=== PATIENT | male | born 1950 ===

== ENCOUNTER 2020-07-09 06:56 | Day surgery (SDC) | payer MEDICARE, OTHER ==
[~2020-07-09] VITALS: Ht 182.9 cm; Wt 118.0 kg
[2020-07-09] MEDS ORDERED: TAMSULOSIN PO (07:40)
[2020-07-09 07:46] VITALS: BP 127/77
[2020-07-09] MEDS ORDERED: SODIUM CHLORIDE 0.9% 1,000 ML IV SCH (08:00)
[2020-07-09] MEDS ORDERED: LIDOCAINE 1%, 20ML ONE (08:35)
[2020-07-09] MEDS ORDERED: FENTANYL PF 100 MCG/2ML ONE (08:51)
[2020-07-09] MEDS ORDERED: MIDAZOLAM 1 MG/ML, 5ML ONE (08:52)
[2020-07-09] MEDS ORDERED: NALOXONE 1 MG/ML, 2ML ONE (08:52)
[2020-07-09] MEDS ORDERED: FLUMAZENIL 0.1 MG/1 ML, 5ML ONE (08:52)
== END 2020-07-09 11:45 | disposition home or self-care (01) ==
LOC: OUT 06:56
PROVIDERS: ATTEND Urology
DX: N35.912 Unspecified bulbous urethral stricture, male (principal); N39.490 Overflow incontinence; N52.9 Male erectile dysfunction, unspecified; I10 Essential (primary) hypertension; E66.9 Obesity, unspecified; F17.210 Nicotine dependence, cigarettes, uncomplicated; Z68.36 Body mass index [BMI] 36.0-36.9, adult; Z79.899 Other long term (current) drug therapy; Z87.440 Personal history of urinary (tract) infections; Z88.0 Allergy status to penicillin; Z91.012 Allergy to eggs
CPT/HCPCS: 51102; 76942; 77002; 99156; 99157; C1725; C1769; J2250; J3010; J7030; 75989; J2310

== ENCOUNTER 2020-10-21 05:49 | Day surgery (SDC) | payer MEDICARE ==
[2020-10-20 12:48] LABS: BASOPHILS % (AUTO) 1 % (0-1); EOSINOPHILS % (AUTO) 6 % (1-7); LYMPHOCYTES % (AUTO) 28 % (22-44); MEAN CORPUSCULAR HEMOGLOBIN 31.2 pg (27.5-34.5); MEAN CORPUSCULAR HGB CONC 33.8 g/dL (33.2-36.2); MEAN PLATELET VOLUME 7.3 fL (7.4-10.4); MONOCYTES % (AUTO) 5 % (2-9); NEUTROPHILS % (AUTO) 60 % (42-75); PLATELET COUNT 431 x10^3/uL (130-400); RED BLOOD COUNT 5.43 x10^6/uL (4.38-5.82); RED CELL DISTRIBUTION WIDTH 14.6 % (9.4-14.8)
[2020-10-20 13:00] LABS: ANION GAP 6 mmol/L (5-15); CALCIUM 9.4 mg/dL (8.5-10.1); CHLORIDE 109 mmol/L (98-107); CREATININE 1.73 mg/dL (0.7-1.3)
[~2020-10-21] VITALS: Ht 182.9 cm; Wt 116.1 kg
[~2020-10-21 05:49] MED LIST: SULF-23 PO; TAMSULOSIN PO
[2020-10-21 06:36] VITALS: BP 117/81
[2020-10-21] MEDS ORDERED: LACTATED RINGERS 1,000 ML IV SCH (07:00)
[2020-10-21] MEDS ORDERED: LIDOCAINE-MPF 1%, 2ML INFIL ONE (07:00)
[2020-10-21] MEDS ORDERED: CHLORHEXIDINE 15 ML UDC PO ONE (07:00)
[2020-10-21] MEDS ORDERED: CEFTRIAXONE 1,000 MG ONE (07:05)
[2020-10-21] MEDS ORDERED: BUPIVACAINE 0.25% ONE (07:07)
[2020-10-21] MEDS ORDERED: METHYLENE BLUE 50 MG/10 ML AMP ONE (07:07)
[2020-10-21] MEDS ORDERED: BACITRACIN/POLYMIXIN B SULFATE OINT 14 GM ONE (07:07)
[2020-10-21] MEDS ORDERED: LIDOCAINE/PF 1%, 30ML ONE (07:07)
[2020-10-21] MEDS ORDERED: LIDOCAINE-MPF 2% ,5ML ONE (07:09)
[2020-10-21] MEDS ORDERED: MIDAZOLAM 1 MG/ML, 2ML ONE (07:09)
[2020-10-21] MEDS ORDERED: FENTANYL PF 250 MCG/5ML ONE (07:10)
[2020-10-21] MEDS ORDERED: GENTAMICIN 80 MG/2 ML ONE (07:30)
[2020-10-21] MEDS ORDERED: SUCCINYLCHOLINE 20 MG/ML, 10ML ONE (07:55)
[2020-10-21] MEDS ORDERED: ONDANSETRON 2MG/ML, 2ML ONE (07:55)
[2020-10-21] MEDS ORDERED: PROPOFOL 10 MG/ML, 20ML ONE (07:55)
[2020-10-21] MEDS ORDERED: DEXAMETHASONE 4 MG/ML, 1ML ONE (07:55)
[2020-10-21] MEDS ORDERED: KETOROLAC 30 MG/1 ML ONE (07:56)
[2020-10-21] MEDS ORDERED: ONDANSETRON 2MG/ML, 2ML IVPush PRN (08:00)
[2020-10-21] MEDS ORDERED: FENTANYL PF 100 MCG/2ML IV PRN (08:00)
[2020-10-21] MEDS ORDERED: HYDROmorphone 1 MG/ML, 1ML INJ IVPush PRN (08:00)
[2020-10-21] MEDS ORDERED: EPHEDRINE 50 MG/ML, 1ML IVPush PRN (08:00)
[2020-10-21] MEDS ORDERED: OXYcodone 5 MG/5 ML ORAL.SOL UDC PO PRN (08:00)
[2020-10-21] MEDS ORDERED: LABETALOL 5MG/ML, 20ML IV PRN (08:00)
[2020-10-21] MEDS ORDERED: ACETAMINOPHEN 325 MG TABLET PO PRN (08:00)
[2020-10-21] MEDS ORDERED: hydrALAzine 20 MG/ML, 1ML IV PRN (08:00)
[2020-10-21] MEDS ORDERED: PROMETHAZINE 25 MG/ML, 1ML IVPush PRN (08:00)
[2020-10-21] MEDS ORDERED: EPHEDRINE 50 MG/ML, 1ML ONE (08:53)
[2020-10-21] MEDS ORDERED: HYDROmorphone 1 MG/ML, 1ML INJ ONE (10:37)
== END 2020-10-21 16:20 | disposition home or self-care (01) ==
LOC: OUT 05:49
PROVIDERS: ATTEND Urology
DX: N35.912 Unspecified bulbous urethral stricture, male (principal); N35.913 Unspecified membranous urethral stricture, male; N52.9 Male erectile dysfunction, unspecified; N39.490 Overflow incontinence; Z79.899 Other long term (current) drug therapy; Z87.440 Personal history of urinary (tract) infections; Z87.891 Personal history of nicotine dependence; Z88.0 Allergy status to penicillin; Z91.012 Allergy to eggs
CPT/HCPCS: 14041; 36415; 51705; 53400; 80048; 85025; 87086; 93005; C1760; C1769; J0330; J0696; J1100; J1170; J1580; J1885; J2250; J2405; J2704; J3010; J7120; Q9968

== ENCOUNTER 2020-11-27 18:54 | Inpatient (IN) | payer MEDICARE ==
[~2020-11-27] VITALS: Ht 182.9 cm; Wt 113.9 kg
[~2020-11-27 18:54] MED LIST changes: +METRONIDAZOLE PMX 500MG/100ML 100 ML IV ONE
--- NOTE | 2020-11-27 19:23 | NUR ---
PT A&OX4, NO ACUTE DISTRESS, SAYS HE'S HAD BLOOD COMING OUT IN HIS URINE. HERE TO BE SEEN.
[2020-11-27 19:34] LABS: MEAN CORPUSCULAR HEMOGLOBIN 30.9 pg (27.5-34.5); MEAN PLATELET VOLUME 7.2 fL (7.4-10.4); PLATELET COUNT 405 x10^3/uL (130-400); RED BLOOD COUNT 5.21 x10^6/uL (4.38-5.82); RED CELL DISTRIBUTION WIDTH 14.3 % (9.4-14.8)
[2020-11-27 19:40] LABS: ALBUMIN 2.7 g/dL (3.4-5.0); ANION GAP 12 mmol/L (5-15); CALCIUM 9.4 mg/dL (8.5-10.1); CHLORIDE 99 mmol/L (98-107); CREATININE 1.49 mg/dL (0.7-1.3)
[2020-11-27] MEDS ORDERED: SODIUM CHLORIDE 0.9% 1,000ML IVBOLUS ONE ×3 (20:00→23:00)
[2020-11-27 20:01] LABS: <PLATELET ESTIMATE> INCREASED; <RBC MORPHOLOGY> NORMAL; BAND#(MANUAL) 1.97 x10^3/uL; BANDS%(MANUAL) 8 % (0-7); BASOS#(MANUAL) 0.25 x10^3/uL (0-0.1); BASOS% (MANUAL) 1 % (0-1); LYMPH#(MANUAL) 3.94 x10^3/uL (1-3.4); LYMPHS% (MANUAL) 16 % (22-44); MONOS#(MANUAL) 0.98 x10^3/uL (0.3-2.7); MONOS% (MANUAL) 4 % (2-9); PMNS WITH VACUOLES 1+; SEG#(MANUAL) 17.47 x10^3/uL (1.8-6.8); SEGS% (MANUAL) 71 % (42-75); SMALL PLATELETS 1+
--- NOTE | 2020-11-27 20:29 | NUR ---
PA TO BEDSIDE TO EVAL PT. PIV STARTED TO LEFT AC X1 ATTEMPT 20G, AND PT TOLERATED WELL. CADD TECHNICIAN TO BEDSIDE AND BLOOD CULTURES X2 DRAWN, AND ALL OTHER LABS. PT TOLERATED WELL. PTS AT BEDSIDE.
--- NOTE | 2020-11-27 21:10 | NUR ---
BLADDER SCANNER SHOWS 532ML OF URINE IN THE PTS BLADDER.
[2020-11-27] MEDS ORDERED: ONDANSETRON 2MG/ML, 2ML ONE (21:29)
[2020-11-27] MEDS ORDERED: MORPHINE SULFATE 4 MG/ML, 1ML ONE (21:29)
[2020-11-27] MEDS ORDERED: ONDANSETRON 2MG/ML, 2ML IVPush ONE (21:30)
[2020-11-27] MEDS: MORPHINE SULFATE 4 MG/ML, 1ML IVPush PRN (21:30)
[2020-11-27] MEDS ORDERED: SODIUM CHLORIDE FLUSH 10ML SYR IVF ONE (21:30)
[2020-11-27] MEDS ORDERED: VANCOMYCIN PER PHARMACY MC ONE (21:30)
[2020-11-27] MEDS ORDERED: OMNIPAQUE 350 MG/ML, 150 ML BOTTLE ONE (21:52)
[2020-11-27] MEDS ORDERED: VANCOMYCIN 2,500 MG in SODIUM CHLORIDE 0.9% 500 ML IV ONE (22:00)
[2020-11-27] MEDS ORDERED: LEVOFLOXACIN/PMX 750MG/150ML 150 ML IV ONE (22:00)
[2020-11-27 22:36] LABS: MICROSCOPIC INDICATED
--- NOTE | 2020-11-27 22:44 | NUR ---
MD TO BEDSIDE WITH RN FOR PLACEMENT OF SUPRAPUBIC SANDY IN EXISTING SUPRAPUBIC HOLE. STERILE TECHNIQUE USED AND MD TO PLACE SANDY WITH RN ASSISTING. SANDY PLACED AND POSITIVE URINE OUTPUT, NOEMI AND CLOUDY CAME OUT. SOME BLOOD STAIN NOTED. CONNECTED TO SANDY BAG, AND SAMPLE SENT TO LAB FOR TESTS. PT RESTING COMFORTABLY. AND ANTIBIOTICS STARTED VIA IV TO LEFT AC.
--- NOTE | 2020-11-27 22:56 | NUR ---
NEW ORDERS, PT TO GO TO OR FOR EMERGENT SURGERY TO HELP WITH CURRENT INFECTION TO HIS GENITAL AREA. PT SWABBED FOR COVID, AND SAMPLE WALKED TO THE LAB. PT A&OX4, NO ACUTE DISTRESS, AND AT BEDSIDE. MD TO BEDSIDE TO EXPLAIN THE NEXT STEPS AND THAT UROLOGY IS COMING TO CONSULT ON PT. PT AND BOTH V/U.
[2020-11-27] MEDS ORDERED: VANCOMYCIN PER PHARMACY MC PRN (23:00)
[2020-11-27] MEDS ORDERED: BUPIVACAINE/PF 0.25% ONE (23:02)
[2020-11-27] MEDS ORDERED: BUPIVACAINE/PF 0.25% INFIL ONE (23:05)
--- NOTE | 2020-11-27 23:09 | NUR ---
PT TAKEN TO OR AT THIS TIME BY THE OR TECH. PER THEM, THIS IS AN EMERGENCY INVOLVING THE GENITAL AREA, SUCH HE IS BEING MOVED TO THE OR NOW FOR CARE. REPORT GIVEN TO [facility]AL[facility] SPECIALIST AND THEY V/U. PTS WENT WITH PT TO SIGN PAPERWORK.
[2020-11-27] MEDS ORDERED: VANCOMYCIN 1,000 MG ONE (23:23)
[2020-11-27] MEDS ORDERED: MIDAZOLAM 1 MG/ML, 2ML ONE (23:25)
[2020-11-27] MEDS ORDERED: FENTANYL PF 250 MCG/5ML ONE (23:25)
[2020-11-27] MEDS ORDERED: PHARMACY MAY ADJ FOR RENAL FX MC PRN (23:30)
[2020-11-27] MEDS ORDERED: MELATONIN 5 MG TABLET PO PRN (23:30)
[2020-11-27] MEDS ORDERED: ONDANSETRON 2MG/ML, 2ML IVPush PRN (23:30)
[2020-11-27] MEDS ORDERED: SODIUM CHLORIDE 0.9% 1,000 ML IV SCH (23:30)
[2020-11-27] MEDS ORDERED: BISACODYL 10 MG SUPP PR PRN (23:30)
[2020-11-28] MEDS ORDERED: MEPERIDINE/PF 25MG/0.5ML IVPush PRN (00:30)
[2020-11-28] MEDS ORDERED: PROMETHAZINE 25 MG/ML, 1ML IV PRN (00:30)
[2020-11-28] MEDS ORDERED: ALBUTEROL SULFATE 2.5 MG/3 ML NPPB PRN (00:30)
[2020-11-28] MEDS ORDERED: ONDANSETRON 2MG/ML, 2ML IVPush PRN (00:30)
[2020-11-28] MEDS ORDERED: KETOROLAC 30 MG/1 ML IV PRN (00:30)
[2020-11-28] MEDS ORDERED: OXYcodone 5 MG/5 ML ORAL.SOL UDC PO PRN (00:30)
[2020-11-28] MEDS ORDERED: hydrALAzine 20 MG/ML, 1ML IV PRN (00:30)
[2020-11-28] MEDS ORDERED: HYDROmorphone 1 MG/ML, 1ML INJ IV PRN (00:30)
[2020-11-28] MEDS ORDERED: DIAZEPAM 5 MG/ML, 2ML IV PRN ×2 (00:30)
[2020-11-28] MEDS ORDERED: LABETALOL 5MG/ML, 20ML IV PRN (00:30)
[2020-11-28] MEDS ORDERED: FENTANYL PF 100 MCG/2ML IV PRN (00:30)
[2020-11-28] MEDS: MORPHINE SULFATE 4 MG/ML, 1ML IVPush PRN (01:12)
[2020-11-28] MEDS ORDERED: NOREPINEPHRINE 8 MG in SODIUM CHLORIDE 0.9% 242 ML IV PRN (01:30)
[2020-11-28] MEDS: LEVOFLOXACIN/PMX 750MG/150ML 150 ML IV SCH (02:30)
[2020-11-28 06:01] LABS: BASOPHILS % (AUTO) 1 % (0-1); EOSINOPHILS % (AUTO) 1 % (1-7); LYMPHOCYTES % (AUTO) 16 % (22-44); MEAN CORPUSCULAR HEMOGLOBIN 30.7 pg (27.5-34.5); MEAN CORPUSCULAR HGB CONC 33.6 g/dL (33.2-36.2); MEAN PLATELET VOLUME 7.1 fL (7.4-10.4); MONOCYTES % (AUTO) 8 % (2-9); NEUTROPHILS % (AUTO) 75 % (42-75); PLATELET COUNT 370 x10^3/uL (130-400); RED BLOOD COUNT 4.33 x10^6/uL (4.38-5.82); RED CELL DISTRIBUTION WIDTH 14.2 % (9.4-14.8)
[2020-11-28 06:12] LABS: ANION GAP 8 mmol/L (5-15); CALCIUM 7.7 mg/dL (8.5-10.1); CHLORIDE 105 mmol/L (98-107)
[2020-11-28 06:15] LABS: CREATININE 0.96 mg/dL (0.7-1.3)
[2020-11-28] MEDS ORDERED: OXYcodone IR 5MG TABLET ONE (06:15)
[2020-11-28] MEDS: OXYcodone IR 5MG TABLET PO PRN (06:20)
[2020-11-28] MEDS ORDERED: POTASSIUM CHLORIDE 20 MEQ TAB.ER.PRT PO ONE (06:30)
[2020-11-28] MEDS: morphine SULFATE 10 MG/ML, 1ML IVPush PRN (10:26)
[2020-11-28] MEDS ORDERED: PHARMACOKINETIC MONITORING MC PRN (15:30)
[2020-11-28] MEDS ORDERED: POLYETHYLENE GLYCOL 17 GM PACKET NG PRN (21:30)
[2020-11-29] MEDS: LEVOFLOXACIN/PMX 750MG/150ML 150 ML IV SCH (01:00)
[2020-11-29] MEDS: morphine SULFATE 10 MG/ML, 1ML IVPush PRN ×2 (03:11→11:03)
[2020-11-29 09:21] LABS: ALANINE AMINOTRANSFERASE 21 U/L (12-78); ALBUMIN 1.9 g/dL (3.4-5.0); ANION GAP 5 mmol/L (5-15); CALCIUM 8.4 mg/dL (8.5-10.1); CHLORIDE 108 mmol/L (98-107); CREATININE 0.95 mg/dL (0.7-1.3)
[2020-11-29 09:24] LABS: ALKALINE PHOSPHATASE 113 U/L (45-117); BILIRUBIN,TOTAL 0.4 mg/dL (0.2-1.0); TOTAL PROTEIN 6.1 g/dL (6.4-8.2)
[2020-11-29 10:51] VITALS: BP 96/60
[2020-11-29] MEDS ORDERED: VANCOMYCIN 2,200 MG in SODIUM CHLORIDE 0.9% 500 ML IV ONE (12:00)
[2020-11-29 13:02] VITALS: BP 95/59
[2020-11-29 20:14] VITALS: BP 95/63
[2020-11-30] MEDS: LEVOFLOXACIN/PMX 750MG/150ML 150 ML IV SCH ×2 (01:34→02:33)
[2020-11-30 02:35] VITALS: BP 104/73
[2020-11-30 06:29] LABS: BASOPHILS % (AUTO) 1 % (0-1); EOSINOPHILS % (AUTO) 5 % (1-7); LYMPHOCYTES % (AUTO) 30 % (22-44); MEAN CORPUSCULAR HEMOGLOBIN 30.7 pg (27.5-34.5); MEAN CORPUSCULAR HGB CONC 33.3 g/dL (33.2-36.2); MONOCYTES % (AUTO) 8 % (2-9); NEUTROPHILS % (AUTO) 56 % (42-75); PLATELET COUNT 309 x10^3/uL (130-400); RED BLOOD COUNT 4.59 x10^6/uL (4.38-5.82); RED CELL DISTRIBUTION WIDTH 14.5 % (9.4-14.8)
[2020-11-30 07:52] VITALS: BP 113/71
[2020-11-30] MEDS: OXYcodone IR 5MG TABLET PO PRN (10:04)
[2020-11-30] MEDS: MAGNESIUM HYDROXIDE 8%, 30ML UDC PO SCH (12:00)
[2020-11-30 13:12] VITALS: BP 106/64
[2020-11-30] MEDS: VANCOMYCIN 2,000 MG in SODIUM CHLORIDE 0.9% 500 ML IV SCH (15:43)
[2020-11-30 19:14] VITALS: BP 116/72
[2020-12-01 01:55] VITALS: BP 138/84
[2020-12-01] MEDS: LEVOFLOXACIN/PMX 750MG/150ML 150 ML IV SCH (02:05)
[2020-12-01] MEDS: OXYcodone IR 5MG TABLET PO PRN ×2 (02:05→08:51)
[2020-12-01 07:34] VITALS: BP 111/73
[2020-12-01] MEDS: MAGNESIUM HYDROXIDE 8%, 30ML UDC PO SCH (07:37)
[2020-12-01 13:57] VITALS: BP 106/69
[2020-12-01] MEDS: VANCOMYCIN 2,000 MG in SODIUM CHLORIDE 0.9% 500 ML IV SCH (15:31)
[2020-12-01 20:04] VITALS: BP 96/62
[2020-12-02] MEDS: LEVOFLOXACIN/PMX 750MG/150ML 150 ML IV SCH (02:39)
[2020-12-02 02:44] VITALS: BP 106/65
[2020-12-02 07:20] VITALS: BP 115/67
[2020-12-02] MEDS: MAGNESIUM HYDROXIDE 8%, 30ML UDC PO SCH (07:59)
[2020-12-02 13:58] VITALS: BP 94/55
[2020-12-02] MEDS: VANCOMYCIN 2,000 MG in SODIUM CHLORIDE 0.9% 500 ML IV SCH (15:36)
[2020-12-02 19:28] VITALS: BP 99/65
[2020-12-03 02:23] VITALS: BP 102/64
[2020-12-03] MEDS: LEVOFLOXACIN/PMX 750MG/150ML 150 ML IV SCH (02:28)
[2020-12-03 07:56] VITALS: BP 101/66
[2020-12-03] MEDS: MAGNESIUM HYDROXIDE 8%, 30ML UDC PO SCH (09:28)
[2020-12-03] MEDS ORDERED: MORPHINE SULFATE 4 MG/ML, 1ML IVPush PRN (10:00)
[2020-12-03] MEDS: morphine SULFATE 10 MG/ML, 1ML IVPush PRN (10:09)
[2020-12-03 13:56] VITALS: BP 98/62
[2020-12-03] MEDS: VANCOMYCIN 2,000 MG in SODIUM CHLORIDE 0.9% 500 ML IV SCH (14:56)
[2020-12-03] MEDS: ENOXAPARIN 40 MG/0.4 ML SQ SCH (15:00)
[2020-12-03] MEDS ORDERED: LIDOCAINE GEL 2%, 5ML ONE (17:14)
[2020-12-03 20:25] VITALS: BP 113/69
[2020-12-04 00:36] VITALS: BP 104/68
[2020-12-04] MEDS: LEVOFLOXACIN/PMX 750MG/150ML 150 ML IV SCH (02:49)
[2020-12-04 06:07] LABS: CHLORIDE 107 mmol/L (98-107)
[2020-12-04 06:28] LABS: ANION GAP 5 mmol/L (5-15); CALCIUM 8.7 mg/dL (8.5-10.1); CREATININE 1.21 mg/dL (0.7-1.3)
[2020-12-04 07:38] LABS: BASOPHILS % (AUTO) 1 % (0-1); EOSINOPHILS % (AUTO) 5 % (1-7); LYMPHOCYTES % (AUTO) 27 % (22-44); MEAN CORPUSCULAR HEMOGLOBIN 30.4 pg (27.5-34.5); MEAN CORPUSCULAR HGB CONC 33.1 g/dL (33.2-36.2); MEAN PLATELET VOLUME 6.5 fL (7.4-10.4); MONOCYTES % (AUTO) 4 % (2-9); NEUTROPHILS % (AUTO) 62 % (42-75); PLATELET COUNT 341 x10^3/uL (130-400); RED BLOOD COUNT 4.63 x10^6/uL (4.38-5.82); RED CELL DISTRIBUTION WIDTH 14.9 % (9.4-14.8)
[2020-12-04] MEDS ORDERED: OMNIPAQUE 350 MG/ML, 150 ML BOTTLE ONE (08:42)
[2020-12-04] MEDS: MAGNESIUM HYDROXIDE 8%, 30ML UDC PO SCH (09:00)
[2020-12-04] MEDS: HYDROcodone/APAP 5/325 TABLET PO PRN (09:01)
[2020-12-04 09:14] VITALS: BP 112/78
[2020-12-04] MEDS: metroNIDAZOLE 500 MG TABLET PO SCH ×2 (12:35→20:31)
[2020-12-04] MEDS: CEFAZOLIN PMX 1GM/50ML 50 ML IV SCH ×2 (12:46→20:31)
[2020-12-04 12:54] VITALS: BP 106/67
[2020-12-04] MEDS: ENOXAPARIN 40 MG/0.4 ML SQ SCH (15:49)
[2020-12-04 20:02] VITALS: BP 91/58
[2020-12-05] MEDS: metroNIDAZOLE 500 MG TABLET PO SCH (04:40)
[2020-12-05] MEDS: CEFAZOLIN PMX 1GM/50ML 50 ML IV SCH ×3 (04:41→20:35)
[2020-12-05 04:44] VITALS: BP 111/69
[2020-12-05 05:20] LABS: BASOPHILS % (AUTO) 1 % (0-1); EOSINOPHILS % (AUTO) 6 % (1-7); LYMPHOCYTES % (AUTO) 27 % (22-44); MEAN CORPUSCULAR HGB CONC 33.6 g/dL (33.2-36.2); MEAN PLATELET VOLUME 6.6 fL (7.4-10.4); MONOCYTES % (AUTO) 6 % (2-9); NEUTROPHILS % (AUTO) 60 % (42-75); PLATELET COUNT 329 x10^3/uL (130-400); RED BLOOD COUNT 4.53 x10^6/uL (4.38-5.82); RED CELL DISTRIBUTION WIDTH 14.9 % (9.4-14.8)
[2020-12-05 05:26] LABS: CALCIUM 8.6 mg/dL (8.5-10.1); CHLORIDE 107 mmol/L (98-107)
[2020-12-05 05:29] LABS: ANION GAP 6 mmol/L (5-15); CREATININE 1.08 mg/dL (0.7-1.3)
[2020-12-05] MEDS: MAGNESIUM HYDROXIDE 8%, 30ML UDC PO SCH (08:11)
[2020-12-05] MEDS: ENOXAPARIN 40 MG/0.4 ML SQ SCH (14:24)
[2020-12-05 14:29] VITALS: BP 98/62
[2020-12-05 19:01] VITALS: BP 105/65
[2020-12-06] MEDS: CEFAZOLIN PMX 1GM/50ML 50 ML IV SCH ×3 (04:54→21:09)
[2020-12-06 04:57] VITALS: BP 112/71
[2020-12-06] MEDS: MAGNESIUM HYDROXIDE 8%, 30ML UDC PO SCH (08:08)
[2020-12-06 13:40] VITALS: BP 99/64
[2020-12-06] MEDS: ENOXAPARIN 40 MG/0.4 ML SQ SCH (14:04)
[2020-12-06 19:49] VITALS: BP 125/75
[2020-12-07 03:05] VITALS: BP 111/70
[2020-12-07] MEDS: CEFAZOLIN PMX 1GM/50ML 50 ML IV SCH ×3 (04:36→21:48)
[2020-12-07] MEDS: MAGNESIUM HYDROXIDE 8%, 30ML UDC PO SCH (09:00)
[2020-12-07 09:06] VITALS: BP 97/54
[2020-12-07 15:25] VITALS: BP 111/70
[2020-12-07] MEDS: ENOXAPARIN 40 MG/0.4 ML SQ SCH (15:25)
[2020-12-07] MEDS: HYDROcodone/APAP 5/325 TABLET PO PRN (18:17)
[2020-12-07 19:28] VITALS: BP 108/76
[2020-12-08 01:21] VITALS: BP 108/71
[2020-12-08] MEDS: CEFAZOLIN PMX 1GM/50ML 50 ML IV SCH ×3 (05:04→20:47)
[2020-12-08 08:02] VITALS: BP 109/75
[2020-12-08] MEDS: MAGNESIUM HYDROXIDE 8%, 30ML UDC PO SCH (09:00)
[2020-12-08] MEDS: morphine SULFATE 10 MG/ML, 1ML IVPush PRN (09:48)
[2020-12-08] MEDS: HYDROcodone/APAP 5/325 TABLET PO PRN ×2 (09:48→22:43)
[2020-12-08 12:29] VITALS: BP 112/68
[2020-12-08] MEDS: ENOXAPARIN 40 MG/0.4 ML SQ SCH (15:25)
[2020-12-08 20:32] VITALS: BP 119/71
[2020-12-09 02:28] VITALS: BP 106/68
[2020-12-09] MEDS: CEFAZOLIN PMX 1GM/50ML 50 ML IV SCH ×3 (04:54→21:21)
[2020-12-09 08:03] VITALS: BP 108/70
[2020-12-09] MEDS: MAGNESIUM HYDROXIDE 8%, 30ML UDC PO SCH (09:04)
[2020-12-09 12:49] VITALS: BP 104/69
[2020-12-09] MEDS: HYDROcodone/APAP 5/325 TABLET PO PRN (16:22)
[2020-12-09] MEDS: ENOXAPARIN 40 MG/0.4 ML SQ SCH (16:23)
[2020-12-09 19:59] VITALS: BP 118/75
[2020-12-10 02:42] VITALS: BP 112/71
[2020-12-10] MEDS: CEFAZOLIN PMX 1GM/50ML 50 ML IV SCH ×3 (05:30→21:19)
[2020-12-10 07:48] VITALS: BP 110/57
[2020-12-10] MEDS: MAGNESIUM HYDROXIDE 8%, 30ML UDC PO SCH (09:00)
[2020-12-10] MEDS: HYDROcodone/APAP 5/325 TABLET PO PRN ×2 (09:48→18:31)
[2020-12-10 13:41] VITALS: BP_SYST 141; BP_SYST 97; BP_DIAS 61; BP_DIAS 76
[2020-12-10] MEDS: ENOXAPARIN 40 MG/0.4 ML SQ SCH (14:59)
[2020-12-10 19:58] VITALS: BP 103/67
[2020-12-11 02:55] VITALS: BP 108/66
[2020-12-11] MEDS: CEFAZOLIN PMX 1GM/50ML 50 ML IV SCH ×3 (05:03→21:03)
[2020-12-11 08:10] VITALS: BP 110/67
[2020-12-11] MEDS: MAGNESIUM HYDROXIDE 8%, 30ML UDC PO SCH (08:28)
[2020-12-11] MEDS: morphine SULFATE 10 MG/ML, 1ML IVPush PRN (10:13)
[2020-12-11 14:55] VITALS: BP 115/73
[2020-12-11] MEDS: ENOXAPARIN 40 MG/0.4 ML SQ SCH (15:36)
[2020-12-11] MEDS: HYDROcodone/APAP 5/325 TABLET PO PRN (17:39)
[2020-12-11 20:37] VITALS: BP 92/58
[2020-12-12 02:21] VITALS: BP 110/68
[2020-12-12] MEDS: CEFAZOLIN PMX 1GM/50ML 50 ML IV SCH ×3 (04:43→20:42)
[2020-12-12 05:59] LABS: CREATININE 1.08 mg/dL (0.7-1.3)
[2020-12-12 08:04] VITALS: BP 101/62
[2020-12-12] MEDS: MAGNESIUM HYDROXIDE 8%, 30ML UDC PO SCH (09:00)
[2020-12-12 12:39] VITALS: BP 133/80
[2020-12-12] MEDS: ENOXAPARIN 40 MG/0.4 ML SQ SCH (16:10)
[2020-12-12] MEDS: HYDROcodone/APAP 5/325 TABLET PO PRN (16:23)
[2020-12-12 19:56] VITALS: BP 105/67
[2020-12-13 01:17] VITALS: BP 108/68
[2020-12-13] MEDS: CEFAZOLIN PMX 1GM/50ML 50 ML IV SCH ×2 (05:03→13:01)
[2020-12-13 06:27] VITALS: BP 118/79
[2020-12-13] MEDS: MAGNESIUM HYDROXIDE 8%, 30ML UDC PO SCH (08:00)
[2020-12-13] MEDS: morphine SULFATE 10 MG/ML, 1ML IVPush PRN (09:35)
[2020-12-13] MEDS ORDERED: POLY17PO5 NG (13:04)
[2020-12-13] MEDS ORDERED: OXYC1TAB12 PO (13:04)
[2020-12-13] MEDS ORDERED: BISA10SU4 PR (13:04)
[2020-12-13] MEDS ORDERED: CEFA1PIG IV (13:04)
[2020-12-13 14:50] VITALS: BP 140/74
== END 2020-12-13 14:53 | DRG 853 ==
LOC: ED 19:57 → EDIP 22:57 → CCU 11-28 00:44 → 4NE 11-29 10:57
PROVIDERS: ADMIT Internal Medicine; ATTEND Internal Medicine
PROC: 0JBB0ZZ Excision of Perineum Subcutaneous Tissue and Fascia, Open Approach (ICD-10-PCS; 2020-11-27)
PROC: 0VB50ZZ Excision of Scrotum, Open Approach (ICD-10-PCS; principal; 2020-11-27 22:45)
PROC: BT1B1ZZ Fluoroscopy of Bladder and Urethra using Low Osmolar Contrast (ICD-10-PCS; 2020-12-02)
PROC: BT1B1ZZ Fluoroscopy of Bladder and Urethra using Low Osmolar Contrast (ICD-10-PCS; 2020-12-04)
PROC: 02HV33Z Insertion of Infusion Device into Superior Vena Cava, Percutaneous Approach (ICD-10-PCS; 2020-12-04)
PROC: B548ZZA Ultrasonography of Superior Vena Cava, Guidance (ICD-10-PCS; 2020-12-04)
DX: A41.9 Sepsis, unspecified organism (principal); R65.21 Severe sepsis with septic shock; M72.6 Necrotizing fasciitis; N17.9 Acute kidney failure, unspecified; E87.2 Acidosis; N39.0 Urinary tract infection, site not specified; N49.3 Fournier gangrene; R31.9 Hematuria, unspecified; N35.919 Unspecified urethral stricture, male, unspecified site; I10 Essential (primary) hypertension; Z20.822 Contact with and (suspected) exposure to COVID-19; N31.9 Neuromuscular dysfunction of bladder, unspecified; N32.0 Bladder-neck obstruction; N32.3 Diverticulum of bladder; N32.89 Other specified disorders of bladder; Z88.0 Allergy status to penicillin; Z88.1 Allergy status to other antibiotic agents; Z91.012 Allergy to eggs; Z79.899 Other long term (current) drug therapy; Z90.49 Acquired absence of other specified parts of digestive tract
CPT/HCPCS: 36415; 36573; 51600; 74177; 74450; 74455; 80048; 80053; 80202; 81001; 82040; 82565; 83605; 83735; 84100; 84145; 85025; 87040; 87070; 87075; 87077; 87081; 87086; 87147; 87186; 87205; 87635; 96365; 99291; G0378; J0690; J1650; J1956; J2250; J2405; J3010; J3370; Q9967; C1751; J2270; J7030; J7040; J7050; Q9958